=== PATIENT | female | born 1950 | race Caucasian/White ===

== ENCOUNTER 2016-10-03 14:38 | Emergency (ER) | payer MEDICARE, OTHER ==
[~2016-10-03] VITALS: Ht 157.5 cm; Wt 57.3 kg
[2016-10-03 14:41] VITALS: TEMP 99.1
[2016-10-03] MEDS ORDERED: KLOR-CON M2020 MEQ PO (15:32)
[2016-10-03] MEDS ORDERED: PROTONIX 40MG T40 MG PO (15:34)
[2016-10-03] MEDS ORDERED: CARAFATE 1GM1 G PO (15:34)
[2016-10-03] MEDS ORDERED: PRINZIDE 12.5 M1 TAB PO (15:35)
[2016-10-03 16:11] LABS: BASO % 0.5 % (0.0-2.0); EOS # 0.3 (0.0-0.7); EOS % 4.5 % (0-4.0); GRAN # 5.4 (1.4-6.5); GRAN % 70.4 % (42.2-75.2); HEMOGLOBIN 12.7 g/dl (12.5-16.0); LYMPH # 1.3 (1.2-3.4); LYMPH % 16.9 % (20.0-51.0); MEAN CELL VOLUME 90 fl (80.0-100.0); MEAN CORPUSCULAR HEMOGLOBIN 31 pg (27.0-31.0); MEAN CORPUSCULAR HGB CONC 35 g/dl (33.0-37.0); MEAN PLATELET VOLUME 9.8 fl (7.4-10.4); MONO # 0.6 (0.1-0.6); MONO % 7.6 % (1.7-9.3); PLATELET COUNT 289 K/mm3 (130-400); RED BLOOD COUNT 4.07 M/mm3 (4.10-5.30); REDCELL DISTRIBUTION WIDTH-CV 12.7 % (11.5-14.5); WHITE BLOOD COUNT 7.6 K/mm3 (4.8-10.8)
[2016-10-03 16:20] LABS: HEMATOCRIT 36.5 % (37.0-47.0)
[2016-10-03 16:23] LABS: ADJUSTED CALCIUM 9.3 mg/dL (8.4-10.2); ALANINE AMINOTRANSFERASE 27 U/L (9-52); ALBUMIN 4.1 gm/dL (3.5-5.0); ALKALINE PHOSPHATASE 68 U/L (50-136); ANION GAP 11 mmol/L (7-16); BILIRUBIN,TOTAL 0.7 mg/dL (0.0-1.0); BLOOD UREA NITROGEN 11 mg/dL (7-17); CALCIUM 9.4 mg/dL (8.4-10.2); CARBON DIOXIDE 26 mmol/L (22-30); CHLORIDE 96 mmol/L (98-107); CREATININE, serum 0.85 mg/dL (0.52-1.25); LIPASE 85 U/L (23-300); MAGNESIUM 1.6 mg/dL (1.6-2.3); PHOSPHOROUS 2.8 mg/dL (2.5-4.5); SODIUM 133 mmol/L (137-145); TOTAL PROTEIN 6.9 gm/dL (6.4-8.2)
[2016-10-03 16:37] LABS: PH 7 (5-8); SQUAMOUS EPITHELIAL None Seen /hpf; URINE APPEARANCE Clear; URINE BACTERIA None Seen /hpf; URINE BILIRUBIN Negative (NEGATIVE); URINE BLOOD Negative (NEGATIVE); URINE COLOR Straw; URINE GLUCOSE Negative (NEGATIVE); URINE KETONE Negative (NEGATIVE); URINE RBC 0-2 /hpf; URINE UROBILINOGEN Negative (NEGATIVE); URINE WBC 0-2 /hpf
[2016-10-03 16:38] LABS: GLUCOSE 118 mg/dL (74-106)
[2016-10-03 16:41] LABS: TROPONIN-I < 0.012 ng/mL (0.000-0.034)
[2016-10-03 18:00] VITALS: BP 149/78; PULSE 83
== END 2016-10-03 20:10 | disposition home or self-care (01) ==
LOC: COL.ER 14:38
PROVIDERS: Emergency Medicine
DX: R00.2 Palpitations (principal); I49.49 Other premature depolarization; I10 Essential (primary) hypertension; K21.9 Gastro-esophageal reflux disease without esophagitis; E87.6 Hypokalemia
CPT/HCPCS: J7120